=== PATIENT | male | born 1980 | race Hispanic/Latino ===

== ENCOUNTER 2017-09-10 07:30 | Emergency (ER) | payer SELFPAY ==
[2017-09-10] MEDS ORDERED: ONDANSETRON HCL 4 MG ORAL DISINTEGRATING TAB PO ONE (07:45)
[2017-09-10] MEDS ORDERED: KETOROLAC TROMETHAMINE 60 MG/2 ML VIAL IM ONE (07:45)
[2017-09-10] MEDS ORDERED: PREDNISONE 20 MG TAB PO ONE (07:45)
--- NOTE | 2017-09-10 09:13 | Diagnostic Imaging Report ---
PROCEDURE: X-RAY LUMBAR SPINE, TWO VIEWS COMPARISON: None. INDICATIONS: SCIATICA PAIN FINDINGS: The lumbar spine is in anatomic alignment without evidence of acute fracture, spondylolisthesis or spondylolysis. Disc space narrowing at L5-S1 is present. Mild compression deformity of T11 and T10 represents old trauma. The paraspinal soft tissues are normal. CONCLUSION: 1. Disc space narrowing at L5-S1. 2. Compression abnormality of T11 and T10. Rio Houston D.O. Dictated by: Rio [place] D.O. on 09/10/2017 at 8:33 Electronically approved by: Rio [place] D.O. on 09/10/2017 at 8:33
[2017-09-10 09:22] VITALS: BP 133/97
== END 2017-09-10 09:41 | disposition home or self-care (01) ==
LOC: ER 07:30
DX: M54.42 Lumbago with sciatica, left side (principal); R26.2 Difficulty in walking, not elsewhere classified
CPT/HCPCS: 72100; 99283; J1885